=== PATIENT | male | born 1950 | race Caucasian/White ===

== ENCOUNTER 2017-08-29 16:10 | Emergency (ER) | payer OTHER ==
[~2017-08-29] VITALS: Ht 167.6 cm; Wt 64.4 kg
[2017-08-29 20:58] LABS: HEMATOCRIT 38.4 % (38.0-50.0); MCHC 33.9 G/DL (30.0-36.0); MCV 88.7 FL (86-99); PLATELET COUNT 200 K/uL (156-360); RBC DIS.WIDTH-SD 42.5 % (39-53); RED BLOOD COUNT 4.33 M/uL (4.00-5.50); WHITE BLOOD COUNT 6.9 K/uL (4.1-10.2)
[2017-08-29 21:12] LABS: CHLORIDE 104 mEq/L (99-109); POTASSIUM 4.5 mEq/L (3.7-5.4); SODIUM 141 mEq/L (136-147)
[2017-08-29 21:14] LABS: GLUCOSE 86 mg/dL (70-99)
[2017-08-29 21:15] LABS: ANION GAP 12 MEQ/L (2-14)
[2017-08-29 21:17] LABS: GFR ESTIMATE (CALCULATED) > 59 mL/min/
[2017-08-29 21:18] LABS: UREA NITROGEN (BUN) 22 mg/dL (9-23)
[2017-08-29 21:20] LABS: CREATINE KINASE 37 IU/L (1-294)
[2017-08-29] MEDS ORDERED: MOTRIN600 MG PO (21:43)
[2017-08-29] MEDS ORDERED: NORCO 5/3251 TABLET PO (21:43)
[2017-08-29] MEDS ORDERED: PREDNISONE20 MG PO (21:43)
[2017-08-29 22:17] VITALS: BP 123/78
== END 2017-08-29 22:17 | disposition home or self-care (01) ==
LOC: EME 16:10
PROVIDERS: Physician Assistant
DX: M54.5 Low back pain (principal); M51.17 Intervertebral disc disorders with radiculopathy, lumbosacral region; M79.604 Pain in right leg; F17.200 Nicotine dependence, unspecified, uncomplicated
CPT/HCPCS: 80048; 82550; 82607; 84439 GA; 84443; 85027; 93971; 99281; 99284; J7512